=== PATIENT | female | born 1970 | race Caucasian/White ===

== ENCOUNTER 2020-02-06 09:30 | Outpatient (CLI) | payer BC | END 2020-02-06 23:59 | disposition home or self-care (01) | LOC: COV 09:30 | PROVIDERS: ATTEND Family Medicine | DX: R05 Cough (principal); R53.83 Other fatigue; R68.83 Chills (without fever); R09.81 Nasal congestion; J02.9 Acute pharyngitis, unspecified; Z20.828 Contact with and (suspected) exposure to other viral communicable diseases ==

== ENCOUNTER 2020-12-12 10:52 | Outpatient (CLI) | payer MEDICAID ==
--- NOTE | 2020-12-12 15:54 | XRAY Report ---
PROCEDURE: Foot 3 View RT INDICATIONS: RIGHT FIRST TOE PAIN TECHNIQUE: 3 views of the foot were acquired. COMPARISON: None FINDINGS: Bones: No fractures or dislocations. No suspicious bony lesions. Soft tissues: No tibiotalar joint effusion. Achilles tendon appears normal. IMPRESSION: No osseous lesion. If there are persistent symptoms or continued clinical concern for pathology, then repeat plain film radiographs (7-10 days) or advanced imaging (CT, MR, bone scan) should be consider ed for further evaluation. Reviewed by: Alysha Constantino MD, PhD on 12/12/2020 3:53 PM PDT Approved by: Alysha Constantino MD, PhD on 12/12/2020 3:53 PM PDT Station ID: [id number]
== END 2020-12-12 10:53 | disposition home or self-care (01) ==
LOC: DI 10:52
PROVIDERS: ATTEND Naturopath
DX: M79.674 Pain in right toe(s) (principal); M79.89 Other specified soft tissue disorders; L53.9 Erythematous condition, unspecified

== ENCOUNTER 2020-12-28 16:38 | Outpatient (CLI) | payer MEDICAID ==
--- NOTE | 2020-12-28 18:52 | Ultrasound Report ---
PROCEDURE: Pelvic w/Transvaginal INDICATIONS: UTERINE FIBROIDS, DYSFUNCTIONAL UTERINE BLEEDING TECHNIQUE: Real-time scanning was performed of the pelvic organs, with image documentation. Additional endovagi nal scanning was necessary due to incomplete visualization of the adnexal and endometrial structures by transabdominal scanning. COMPARISON: None. FINDINGS: No pathologic free abdominal or pelvic fluid. Uterus: Uterus is mildly enlarged in size at 10.6 x 6.6 x 8.3, with a calculated volume of 302 cc T he endometrium measures 3 mm in combined thickness. Low echogenicity uterine lesions are seen, which are attributed to fibroids and which measure as foll ows: Right mid uterus, subserosal, 3.3 x 3 x 4.8 cm Mid posterior uterus, intramural, 4.9 x 3.9 x 4.7 cm Mid uterus, fundal, intramural 4 x 4.1 x 4.7 cm Mid fundal uterus, subserosal, 2.6 x 2.1 x 3.1 cm Left anterior uterus, subserosal/intramural, 3.7 x 3.2 x 3.7 cm Left anterior uterus, subserosal/intramural, 3.7 x 3.7 x 3.2 cm Mid anterior uterus, submucosal, 0.7 x 0.4 x 0.5 cm. Internal calcification is seen. Ovaries: Neither ovary can be seen, secondary to overlying bowel gas. No adnexal masses are seen on either side. IMPRESSION: Numerous uterine fibroids are seen, with the largest measuring up to 4.9 cm. There is a 7 mm mid anterior uterus submucosal fibroid seen, with intradural calcification. Reviewed by: Nicanor Montenegro MD on 12/28/2020 5:51 PM [facility] Approved by: Nicanor Montenegro MD on 12/28/2020 5:51 PM WIL Station ID: [id number]
== END 2020-12-28 16:39 | disposition home or self-care (01) ==
LOC: DI 16:38
PROVIDERS: ATTEND Obstetrics & Gynecology
DX: D25.2 Subserosal leiomyoma of uterus (principal); D25.1 Intramural leiomyoma of uterus; D25.0 Submucous leiomyoma of uterus